=== PATIENT | male | born 1960 | race African-American/Black ===

== ENCOUNTER 2020-10-21 15:12 | Emergency (ER) | payer SELFPAY | END 2020-10-21 15:56 | disposition left against medical advice (07) | LOC: ED 15:12 | DX: R10.9 Unspecified abdominal pain (principal); Z53.21 Procedure and treatment not carried out due to patient leaving prior to being seen by health care provider ==

== ENCOUNTER 2020-10-21 16:14 | Emergency (ER) | payer SELFPAY ==
--- NOTE | 2020-10-21 16:59 | Event Note ---
ED Screening Note Date of service: 10/21/20 Time: 16:58 ED Screening Note: Patient complains of sudden onset of left-sided abdominal pain radiating to his left back x 12 PM today Patient does not speak Vietnamese This initial assessment/diagnostic orders/clinical plan/treatment(s) is/are subject to change based on patients health status, clinical progression and re- assessment by fellow clinical providers in the ED. Further treatment and workup at subsequent clinical providers discretion. Patient/guardian urged not to elope from the ED as their condition may be serious if not clinically assessed and managed. Initial orders include: Labs CT
[2020-10-21 18:16] LABS: Alanine Aminotransferase 25 units/L (7-56); Albumin 4.1 g/dL (3.9-5); BUN/Creatinine Ratio 26; Blood Urea Nitrogen 23 mg/dL (9-20); Calcium 9.5 mg/dL (8.4-10.2); Hemolysis Index 10
[2020-10-21 18:17] LABS: Basophils % (Auto) 0.3 % (0.0-1.8); Eosinophils # (Auto) 0.2 K/mm3 (0.0-0.4); Eosinophils % (Auto) 1.5 % (0.0-4.3); Hematocrit 49.3 % (35.5-45.6); Hemoglobin 16.6 gm/dl (11.8-15.2); Lymphocytes # (Auto) 0.8 K/mm3 (1.2-5.4); Lymphocytes % (Auto) 6.1 % (13.4-35.0); Mean Corpuscular HGB Conc 34 % (32-34); Mean Corpuscular Volume 94 fl (84-94); Monocytes # (Auto) 0.5 K/mm3 (0.0-0.8); Monocytes % (Auto) 3.8 % (0.0-7.3); Red Blood Count 5.23 M/mm3 (3.65-5.03); Red Cell Distribution Width 13.3 % (13.2-15.2)
[2020-10-21 18:18] LABS: Platelet Count 81 K/mm3 (140-440)
[2020-10-21 18:37] LABS: Bilirubin,Urine NEG (Negative); Blood,Urine LG (Negative); Color,Urine Yellow (Yellow); Mucus,Urine FEW /HPF; Urobilinogen,Urine < 2.0 mg/dL (<2.0)
[2020-10-21 18:42] LABS: RBC,Urine > 182.0 /HPF (0.0-6.0)
== END 2020-10-22 | disposition left against medical advice (07) ==
LOC: ED 16:14
DX: R10.9 Unspecified abdominal pain (principal); Z53.21 Procedure and treatment not carried out due to patient leaving prior to being seen by health care provider
CPT/HCPCS: 36415; 80053; 81001; 83690; 85025; 87086

== ENCOUNTER 2021-03-14 11:18 | Outpatient (CLI) | payer OTHER ==
[~2021-03-14 11:18] MED LIST: DOBUTamine 100 MG in DEXTROSE 5% IN WATER 92 ML IV ONE
[2021-03-14] MEDS ORDERED: ATROPINE 1 MG/ML VIAL IV ONE (12:34)
--- NOTE | 2021-03-15 11:30 | Treadmill Report ---
DATE OF SERVICE: 03/14/2021 DOBUTAMINE STRESS ECHO ORDERING PHYSICIAN: Dr. Emanuel Butler, present in the office. READING PHYSICIAN: Dr. Webb. ____ for chest pain, coronary artery disease, hypertension, hyperlipidemia, smoker, and diabetes. Baseline heart rate was 59. Baseline EKG sinus rhythm, no ST-T abnormalities. Baseline blood pressure 101/69. Baseline echo reading shows normal LV function, EF 55-60%. The patient achieved 85% max predicted heart rate with dobutamine 40 mcg with atropine 0.5 mg given. Peak of exercise at low shows normal LV function, EF 60-65% and a peak greater than 75%. No wall motion abnormality noted. No EKG changes or arrhythmias suggestive of ischemia. SUMMARY: Negative dobutamine stress echo. The patient achieved 85% max predicted heart rate on max 40 mcg of dobutamine and 0.5 mg of atropine with no EKG changes or arrhythmia. The patient had EF increased from 55-60%, greater than 75%. No wall motion abnormalities noted. Negative for ischemia. TID: [id number] RECEIPT: [id number] MIRIAM/JONO/TRAN
== END 2021-03-14 11:19 | disposition home or self-care (01) ==
LOC: CARD 11:18
DX: I25.10 Atherosclerotic heart disease of native coronary artery without angina pectoris (principal); E78.2 Mixed hyperlipidemia; F17.290 Nicotine dependence, other tobacco product, uncomplicated; E11.9 Type 2 diabetes mellitus without complications; Z98.61 Coronary angioplasty status
CPT/HCPCS: 93017; 93320; 93325; 93350; J1250

== ENCOUNTER 2021-12-05 06:22 | Day surgery (SDC) | payer OTHER ==
[2021-12-05] MEDS ORDERED: ASPIRIN EC 325 MG TAB PO ONE (08:00)
[2021-12-05] MEDS ORDERED: SODIUM CHLORIDE 0.9% 500 ML 500 ML IV SCH (08:00)
[2021-12-05 08:14] LABS: Basophils % (Auto) 0.7 % (0.0-1.8); Eosinophils # (Auto) 0.2 K/mm3 (0.0-0.4); Eosinophils % (Auto) 4.1 % (0.0-4.3); Hematocrit 52.2 % (35.5-45.6); Hemoglobin 17.2 gm/dl (11.8-15.2); Lymphocytes # (Auto) 0.7 K/mm3 (1.2-5.4); Lymphocytes % (Auto) 13.1 % (13.4-35.0); Mean Corpuscular HGB Conc 33 % (32-34); Mean Corpuscular Volume 92 fl (84-94); Monocytes # (Auto) 0.3 K/mm3 (0.0-0.8); Monocytes % (Auto) 5.4 % (0.0-7.3); Platelet Count 77 K/mm3 (140-440); Red Blood Count 5.65 M/mm3 (3.65-5.03); Red Cell Distribution Width 13.7 % (13.2-15.2)
[2021-12-05 08:17] LABS: INR 0.89 (0.87-1.13)
[2021-12-05 08:18] LABS: Partial Thromboplastin Time 31.9 Sec. (24.2-36.6)
[2021-12-05 08:20] LABS: Blood Urea Nitrogen 21 mg/dL (9-20); Calcium 9.6 mg/dL (8.4-10.2); Hemolysis Index 10
[2021-12-05 08:23] LABS: BUN/Creatinine Ratio 30
[2021-12-05] MEDS ORDERED: HEPARIN/NS 5000 UNIT/500ML 1,000 ML IR ONE (09:09)
[2021-12-05] MEDS ORDERED: HEPARIN 10,000 UNITS/10 ML VIAL ONE (09:09)
[2021-12-05] MEDS ORDERED: MIDAZOLAM 2 MG/2 ML INJ ONE (09:09)
[2021-12-05] MEDS ORDERED: fentaNYL 100 MCG/2 ML INJ ONE (09:09)
[2021-12-05] MEDS ORDERED: VERAPAMIL 5 MG/2 ML INJ ONE (09:09)
[2021-12-05] MEDS ORDERED: NITROGLYCERIN SYRINGE 3 ML ONE (09:10)
[2021-12-05] MEDS ORDERED: LIDOCAINE (2%) 20 MG/1 ML VIAL 20 ML MDV INFILTRATI ONE ×2 (09:10→10:19)
[2021-12-05] MEDS ORDERED: CLOPIDOGREL 75 MG TAB PO SCH (10:00)
[2021-12-05] MEDS ORDERED: HEPARIN 5,000 UNIT in SODIUM CHLORIDE 0.9% 500 ML 500 ML IR ONE (10:19)
[2021-12-05] MEDS ORDERED: NITROGLYCERIN 600 MCG/3 ML SYRINGE ART-SHEATH ONE (10:19)
[2021-12-05] MEDS ORDERED: VERAPAMIL 5 MG/2 ML INJ ART-SHEATH ONE (10:20)
[2021-12-05] MEDS ORDERED: HEPARIN 10,000 UNITS/10 ML VIAL ART-SHEATH ONE (10:20)
[2021-12-05] MEDS ORDERED: MIDAZOLAM 2 MG/2 ML INJ IV ONE (10:20)
[2021-12-05] MEDS ORDERED: fentaNYL 100 MCG/2 ML INJ IV ONE (10:21)
--- NOTE | 2021-12-05 11:21 | Discharge Summary ---
Short Stay Discharge Plan Activity: advance as tolerated Weight Bearing Status: Full Weight Bearing Diet: low fat, low cholesterol, low salt, diabetic Wound: keep clean and dry Special Instructions: no heavy lifting (3 days), hold Metformin (48 hrs) Follow up with: PRIMARY CARE, [Primary Care Provider] - 7 Days ASUNCION HOLBROOK MD [Staff Physician] - 7 Days
--- NOTE | 2021-12-05 11:21 | Cardiac Catherization Report ---
DATE OF SERVICE: 12/05/2021 CARDIAC CATHETERIZATION REPORT REASON FOR PROCEDURE: Coronary artery disease, chest pain. PROCEDURES: 1. Left heart catheterization. 2. Selective left and right coronary angiography. 3. Left ventricular angiography. 4. Sedation time start and end. DESCRIPTION OF PROCEDURE: The patient was prepped and draped in a sterile fashion after informed consent. The right radial cath site was prepped and draped after negative Thiago's test. The right radial artery was entered using Seldinger technique followed by placement of a 6-Congolese hydrophilic sheath. Routine radial cocktail was administered via the sheath. Selective left and right coronary angiography was performed using #3.5 left Ad and #4 right Ad. The pigtail catheter was used for left ventricular angiography. The catheters were then removed, sheath removed and hemostasis achieved using a TR band. The patient was returned to the postprocedure unit in stable condition. There were no complications. HEMODYNAMICS: Left ventricular end-diastolic pressure was 14, following coronary angiography. Ascending aortic pressure was 133/65. There was no significant pressure gradient on pullback across the aortic valve. CORONARY ANGIOGRAPHY: The left main coronary artery was free of significant disease. There was a long stented segment of the proximal and mid LAD. The stented segment appeared widely patent with minimal to no significant in-stent restenosis. Following the stented segment, there was diffuse mild to moderate atherosclerosis of the distal segments of the LAD. The diagonal branches contained diffuse mild atherosclerosis. A small ramus intermedius artery contained diffuse mild atherosclerosis. The circumflex artery contained mild irregularities in its proximal segment. This was followed by another shorter, stented segment of its mid segment. The mid circumflex stent was also patent with minimal to no significant in-stent restenosis. Otherwise, the rest of the non-stented circumflex segments contained mild diffuse atherosclerosis. The right coronary artery was dominant. This vessel was completely occluded in its proximal to mid segment. This was a long segment of a chronic total occlusion. The distal right coronary artery including the PDA and the posterolateral branch were filled by collaterals from the left coronary system. There was normal left ventricular systolic function with ejection fraction 60%. Notably, the inferior wall motion was well preserved. CONCLUSION: 1. Multivessel coronary artery disease. 2. Widely patent proximal and mid left anterior descending artery stents. 3. Patent mid circumflex artery stent. 4. Chronic total occlusion of the right coronary artery, with the distal vessel perfused by collaterals from the left coronary system. 5. Normal left ventricular systolic function, ejection fraction 60%. CONCLUSION: Aggressive risk factor modification and medical therapy. TID: [id number] RECEIPT: [id number] [place]
[2021-12-05] MEDS ORDERED: SODIUM CHLORIDE 0.9% 1000 ML 1,000 ML IV SCH (11:30)
[2021-12-05] MEDS ORDERED: traMADol 50 MG TAB PO PRN (11:30)
[2021-12-05 13:21] LABS: Hematocrit 44.9 % (35.5-45.6); Hemoglobin 14.7 gm/dl (11.8-15.2); Mean Corpuscular HGB Conc 33 % (32-34); Mean Corpuscular Volume 92 fl (84-94); Platelet Count 63 K/mm3 (140-440); Red Blood Count 4.88 M/mm3 (3.65-5.03); Red Cell Distribution Width 13.7 % (13.2-15.2)
[2021-12-05 15:21] VITALS: BP 104/68
--- NOTE | 2021-12-10 21:07 | Electrocardiograph Report ---
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
== END 2021-12-05 06:23 | disposition home or self-care (01) ==
LOC: CATHLABREC 06:22
PROVIDERS: ATTEND Internal Medicine Cardiovascular Disease
DX: R07.9 Chest pain, unspecified (principal); I25.10 Atherosclerotic heart disease of native coronary artery without angina pectoris; I10 Essential (primary) hypertension; E78.00 Pure hypercholesterolemia, unspecified; F17.210 Nicotine dependence, cigarettes, uncomplicated; Z79.4 Long term (current) use of insulin; Z79.899 Other long term (current) drug therapy; Z98.890 Other specified postprocedural states
CPT/HCPCS: 36415; 80048; 85025; 85027; 85610; 85730; 93005; 93458; C1894; J1644; J1815; J2250; J3010; J3490; J7030; J7040; Q0162; Q9967